=== PATIENT | male | born 1945 | race Caucasian/White ===

== ENCOUNTER 2017-12-28 01:26 | Inpatient (IN) | payer OTHER ==
[~2017-12-28] VITALS: Ht 180.3 cm; Wt 111.6 kg
[~2017-12-28 01:26] MED LIST: FLOMAX0.4 M1 PO; LIPITOR20 M2 PO; NEURONTIN300 M1 PO; NORVASC5 M1 PO
--- NOTE | 2017-12-28 10:10 | Admission Core Measures ---
Acute Coronary Syndrome (CM) ACS Core Measures Acute Coronary Syndrome Diagnosis No Congestive Heart Failure (NEW) CHF Core Measures Congestive Heart Failure Diagnosis No Cerebrovascular Accident CVA Core Measures CVA/TIA Diagnosis No Venous Thromboembolism VTE Core Jessika (View Protocol) VTE Risk Factors Surgery No Mechanical VTE Prophylaxis d/t N/A MechProphylax Ordered No VTE Pharm Prophylaxis d/t NA PharmProphylax ordered Problem List As ranked by this Provider includes Assessment & Plan 1. Unilateral primary osteoarthritis, left hip HOME MEDS Home Med List Amlodipine Besylate (Norvasc) 5 MG TABLET 1 TAB PO DAILY HTN (Reported) Atorvastatin Calcium (Lipitor) 20 MG TABLET 1 TAB PO DAILY CHOLESTEROL ( Reported) Gabapentin (Neurontin) 300 MG CAPSULE 1 CAP PO TID PAIN (Reported) Tamsulosin HCl (Flomax) 0.4 MG CAP.ER.24H 1 CAP PO DAILY BPH (Reported)
[2017-12-28] MEDS ORDERED: COLACE100 M1 PO (10:16)
[2017-12-28] MEDS ORDERED: DILAUDID2 M1 PO (10:16)
[2017-12-28] MEDS ORDERED: MIRALAX17 G1 PO (10:16)
[2017-12-28] MEDS ORDERED: ASPIRIN EC81 M1 PO (10:16)
[2017-12-28] MEDS ORDERED: MS CONTIN15 M3 PO (10:16)
[2017-12-28] MEDS ORDERED: PROTONIX20 M1 PO (10:16)
--- NOTE | 2017-12-28 10:19 | Patient Discharge Instructions ---
Discharge Instructions General Discharge Information You were seen/treated for: Left hip pain You had these procedures: Left total hip replacement Watch for these problems: Fever over 101, Drainage from wound, Redness and swelling around wound, Unable to bear weight on left lower extremity No bath, but you may shower: Yes Diet Continue normal diet: Yes Activity Activity Limited to: Weight bear as tolerated (with rolling walker) Acute Coronary Syndrome Inclusion Criteria At DC or during hospital stay patient has or had the following: ACS DIAGNOSIS No Discharge Core Measures Meds if any: Prescribed or Continued at Discharge Meds if any: NOT Prescribed or Continued at Discharge Congestive Heart Failure Inclusion Criteria At DC or during hospital stay patient has or had the following: CHF DIAGNOSIS No Discharge Core Measures Meds if any: Prescribed or Continued at Discharge Meds if any: NOT Prescribed or Continued at Discharge Cerebrovascular accident Inclusion Criteria At DC or during hospital stay patient has or had the following: CVA/TIA Diagnosis No Discharge Core Measures Meds if any: Prescribed or Continued at Discharge Meds if any: NOT Prescribed or Continued at Discharge Venous thromboembolism Inclusion Criteria VTE Diagnosis No VTE Type NONE VTE Confirmed by (Test) NONE Discharge Core Measures - Per Current guidelines, there needs to be overlap - treatment for the first 5 days of Warfarin therapy. - If discharged on Warfarin prior to 5 days of - overlap therapy, the patient will need to be - assessed for post discharge needs including - *Post discharge parental anticoagulation - *Warfarin and/or parental anticoagulation education - *Follow up date to check INR post discharge At least 5 days overlap therapy as Inpatient No Meds if any: Prescribed or Continued at Discharge Note: Overlap Therapy is Warfarin and Anticoagulant Meds if any: NOT Prescribed or Continued at Discharge
--- NOTE | 2017-12-28 10:21 | Surg Short-stay <48hrs Dis Sum ---
Visit Information Visit Dates Admission Date: 12/28/17 Discharge Date: 12/28/17 Surgical Short Stay DC Summary Admission Diagnosis: Left hip primary osteoarthritis Final Diagnosis: Status post left total hip replacement Procedure(s): Left total hip replacement Summary/Significant Findings: 12/28/2017 patient tolerated a left total hip replacement by Dr. Nelson. Postoperatively he was voiding spontaneously, tolerating a regular diet, ambulated with physical therapy and was cleared for discharge to home. Patient was given follow-up instructions and was told to follow up with Dr. Connelly in 6 weeks and to call sooner with any questions or concerns. Condition at Discharge: Good Discharge Disposition: home health services Discharge instructions provided to patient/family: Yes Post discharge follow-up plan: Follow-up with Dr. Nelson in 6 weeks. Call sooner with any questions or concerns
--- NOTE | 2017-12-28 13:06 | PN- Orthopedic ---
Subjective Subjective: POC feeling well, no pain. slightly numb but "wearing off", no n/v/cp/sob. no oob yet. awaiting bed upstairs. Objective Vital Signs and I&Os 105/58 97%RA Physical Exam: gen- nad card-s1s2 pulm- ctab abd- obese soft nt ext- l hip dressing cdi, nt, ice in place. gross sensation intact, though slightly limited. gross dorsi/plantarfelxion intact. calves soft nt bl. alps on. Assessment/Plan Assessment/Plan A- POD0 sp L CORAL, stable. P- asa 81mg bid no indocin 2/2 CRF reg diet as tolerated prn pain meds oob, pt, wbat abx x23hr postop dc planning Core Measures Venous Thromboembolism VTE Risk Factors Surgery No Mechanical VTE Prophylaxis d/t N/A MechProphylax Ordered No VTE Pharm Prophylaxis d/t NA PharmProphylax ordered
[2017-12-28 13:50] VITALS: BP 132/78
--- NOTE | 2017-12-28 13:56 | RADIOLOGY REPORT ---
EXAMINATION: XR HIP, LEFT CLINICAL INFORMATION: Left total hip replacement. In PACU COMPARISON: None TECHNIQUE: AP and crosstable lateral portable views of the left hip. FINDINGS: Prosthetic components of the left total hip arthroplasty are appropriately aligned. No periprosthetic fracture. Gas from recent surgery is present in the surrounding soft tissues. IMPRESSION: Normal postoperative appearance of the left total hip prosthesis.
--- NOTE | 2017-12-28 17:37 | Operative Report ---
Operative/Inv Procedure Report Surgery Date: 12/28/17 Name of Procedure: Left total hip replacement Pre-Operative Diagnosis: Primary left hip DJD Post-Operative Diagnosis: Same Estimated Blood Loss: 250 Surgeon/[facility] Nursing Director: Leslie CATALAN,Paulo Mcgregor Anesthesia: block Operative/Procedure Note Note: Description of Procedure: The patient was taken to the operating room and positively identified. After induction of spinal anesthesia and administration of appropriate pre-operative antibiotics, the patient was positioned supine on the operating room table and all bony prominences were well padded. After performing a surgical timeout, the left lower extremity was prepped and draped in the usual sterile fashion. A direct anterior approach was made to the left hip. The incision was carried sharply through superficial soft tissues to the level of the fascia. Meticulous hemostasis was maintained with Bovie electocautery. The fascia over the tensor fascia antonieta muscle was opened sharply and the interval between the TFL and the sartorius was entered bluntly taking care to stay lateral to the lateral femoral cutaneous nerve. Retractors were placed around the femoral neck and the pericapsular fat was identified. The ascending branches of the lateral femoral circumflex vessels were identified and carefully coagulated. The pericapsular fat and anterior capsule were then resected. A napkin ring osteotomy was performed and the femoral head was removed without difficulty. Attention was then turned to the acetabulum. After appropriate placement of retractors, the acetabulum was exposed. Soft tissue was cleaned from the acetabular margin and notch. Overhanging osteophytes were removed and the teardrop was exposed. The acetabulum was then sequentially reamed to accept a 64 mm Lawn Tritanium hemispherical solid shell. This was impacted into place in the appropriate position and fitted with a 36 mm Trident X3 zero degree polyethylene insert. Attention was then turned to the femur. After performing the appropriate ligament releases, the proximal femur was exposed. It was then sequentially broached to accept a size 6 Lisa Anato stem. This was trialed for leg length and stability. The trial component was removed and the final component was impacted into place. The trunnion was carefully cleaned and fit with a 36 mm, + 0 Biolox delta ceramic femoral head. The hip was reduced and put through a full range of motion and found to be stable. The articular space was then irrigated with sterile saline. The periarticular soft tissues were infilitrated with Marcaine. The fascial layer was closed with interrupted #1 vicryl suture and the skin was re-approximated with interrupted 2 -0 vicryl. The skin was closed with a running 3-0 V-Lock suture. Steri-strips and a sterile dressing were applied. The patient was awakened and taken to the recovery room in satisfactory condition.
== END 2017-12-28 16:14 | disposition home health service (06) | DRG 470 ==
LOC: SDA 01:26 → ENRESERV 12:54 → ENTRNSPT 13:18 → EDTRNSPTSTS 13:23 → EDTRNSPT 13:23 → 2NB 13:33 → CMPTRNSPT 13:41 → ENPENDDIS 14:39 → 2NB 16:14
PROC: 0SRB04A Replacement of Left Hip Joint with Ceramic on Polyethylene Synthetic Substitute, Uncemented, Open Approach (ICD-10-PCS; principal; 2017-12-28)
DX: M16.12 Unilateral primary osteoarthritis, left hip (principal); E78.5 Hyperlipidemia, unspecified; Z68.34 Body mass index [BMI] 34.0-34.9, adult; Z90.49 Acquired absence of other specified parts of digestive tract; N40.0 Benign prostatic hyperplasia without lower urinary tract symptoms; E66.9 Obesity, unspecified; N18.9 Chronic kidney disease, unspecified; I12.9 Hypertensive chronic kidney disease with stage 1 through stage 4 chronic kidney disease, or unspecified chronic kidney disease
CPT/HCPCS: 2NBSP; 73502-LT; 97116-GO; 97161-GP; J0131; J0690; J0735; J2405; J3490; J7042